=== PATIENT | female | born 1950 | race Caucasian/White ===

== ENCOUNTER 2019-06-23 11:51 | Emergency (ER) | payer MEDICARE, BC ==
[~2019-06-23] VITALS: Ht 160 cm; Wt 81.6 kg
[2019-06-23] MEDS ORDERED: LEVO125T8 PO (12:07)
[2019-06-23] MEDS ORDERED: LOSA100T31 PO (12:07)
--- NOTE | 2019-06-23 12:15 | NUR ---
JORGE GELLER AT BEDSIDE FOR MSE.
[2019-06-23] MEDS ORDERED: MORPHINE SULFATE 4 MG/1 ML DISP.SYRIN ONE ×2 (12:26→13:08)
[2019-06-23] MEDS ORDERED: MORPHINE SULFATE 4 MG/1 ML DISP.SYRIN IM ONE ×2 (12:30→13:15)
--- NOTE | 2019-06-23 13:22 | NUR ---
Patient discharged to home in stable conditon. Written and verbal after care instructions given. Patient verbalizes understanding of instructions. ALL BELONGINSG W/ PT. PT SELF-AMBULATED W/O DIFFICULTY. PT STATES SHE WILL BE PICKED UP BY ROOMMATE IN PRIVATE VEHICLE.
[2019-06-23 13:23] VITALS: BP 138/82
== END 2019-06-23 13:24 | disposition home or self-care (01) ==
LOC: ER 11:51
DX: M54.42 Lumbago with sciatica, left side (principal); E03.9 Hypothyroidism, unspecified; Z79.899 Other long term (current) drug therapy
CPT/HCPCS: 96372 ×2; 99283; J2270 ×2; A4663